=== PATIENT | female | born 1995 | race Caucasian/White ===

== ENCOUNTER 2018-10-13 09:42 | Emergency (ER) | payer OTHER ==
[2018-10-13 10:30] LABS: Urine Blood TRACE (NEG); Urine Glucose 2+ (NEG); Urine Protein 2+ (NEG); Urine Specific Gravity 1.025 (1.005-1.030)
[2018-10-13 10:31] LABS: Hematocrit 49.6 % (36.0-45.0); RBC Red Blood Cell Count 5.62 M/uL (3.86-4.86)
[2018-10-13 10:32] LABS: Absolute Lymphocytes (CBC) 2.7 K/uL (0.7-4.9); Absolute Monocytes 0.6 K/uL (0.1-1.3); Absolute Neutrophil 7.8 K/uL (1.8-8.0); Basophils % 0.9 % (0-1.3); Eosinophils % 4.9 % (0-4.4); Lymphocytes % 22.6 % (15.3-44.8); MPV 7.9 fL (7.6-11.3); Monocytes % 5.3 % (3.3-12.3)
[2018-10-13] MEDS ORDERED: NA CHLORIDE 0.9% 1,000 ML ONE (10:36)
[2018-10-13] MEDS ORDERED: ONDANSETRON 4 MG/2 ML VIAL ONE (10:36)
[2018-10-13] MEDS ORDERED: KETOROLAC 30 MG/ML INJ ONE (10:36)
[2018-10-13 10:54] LABS: ALT/SGPT 46 U/L (12-78); AST/SGOT 15 U/L (15-37); Albumin 4.2 g/dL (3.4-5.0); Alkaline Phosphatase 68 U/L (45-117); BUN Blood Urea Nitrogen 12 mg/dL (7-18); Bicarbonate 25 mmol/L (21-32); Bilirubin Direct 0.1 mg/dL (0-0.2); Bilirubin Total 0.5 mg/dL (0.2-1.0); Glucose Level 119 mg/dL (74-106); Lipase 111 U/L (73-393); Potassium 3.6 mmol/L (3.5-5.1); Sodium Level 138 mmol/L (136-145)
--- NOTE | 2018-10-13 11:06 | EDPHYS ---
Physician Documentation [facility] Name: Yari Salazar Age: 23 yrs Sex: Female : 1995 Arrival Date: 10/13/2018 Time: 09:46 Bed 19 Private MD: Lei Romeo ED Physician Jason Gregorio HPI: 10/13 10:17 This 23 yrs old Female presents to ER via Ambulatory with complaints of kb Abdominal Pain, Vomiting/Diarrhea. 10:17 The patient presents with abdominal pain in the upper abdomen. kb 10:18 Onset: The symptoms/episode began/occurred 3 day(s) ago. The symptoms do not radiate. kb Associated signs and symptoms: Pertinent positives: nausea, vomiting, and diarrhea, Pertinent negatives: dysuria, fever. The symptoms are described as constant. Modifying factors: The symptoms are alleviated by nothing, the symptoms are aggravated by nothing. Severity of pain: At its worst the pain was moderate in the emergency department the pain is unchanged. The patient has not experienced similar symptoms in the past. The patient has not recently seen a physician. 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 - Social history:: Smoking status: Patient/guardian denies using tobacco. - Ebola Screening: : Patient negative for fever greater than or equal to 101.5 degrees Fahrenheit, and additional compatible Ebola Virus Disease symptoms Patient denies exposure to infectious person Patient denies travel to an Ebola-affected area in the 21 days before illness onset No symptoms or risks identified at this time. ROS: 10:18 Constitutional: Negative for fever, chills, and weight loss, ENT: Negative for injury, kb pain, and discharge, Neck: Negative for injury, pain, and swelling, Cardiovascular: Negative for chest pain, palpitations, and edema, Respiratory: Negative for shortness of breath, cough, wheezing, and pleuritic chest pain, Back: Negative for injury and pain, : Negative for injury, bleeding, discharge, and swelling, MS/Extremity: Negative for injury and deformity, Skin: Negative for injury, rash, and discoloration, Neuro: Negative for headache, weakness, numbness, tingling, and seizure. 10:18 Abdomen/GI: Positive for abdominal pain, nausea, vomiting, and diarrhea. Exam: 10:19 Constitutional: This is a well developed, well nourished patient who is awake, alert, kb and in no acute distress. Head/Face: Normocephalic, atraumatic. ENT: Nares patent. No nasal discharge, no septal abnormalities noted. Tympanic membranes are normal and external auditory canals are clear. Oropharynx with no redness, swelling, or masses, exudates, or evidence of obstruction, uvula midline. Mucous membranes moist. Neck: Trachea midline, no thyromegaly or masses palpated, and no cervical lymphadenopathy. Supple, full range of motion without nuchal rigidity, or vertebral point tenderness. No Meningismus. Chest/axilla: Normal chest wall appearance and motion. Nontender with no deformity. No lesions are appreciated. Cardiovascular: Regular rate and rhythm with a normal S1 and S2. No gallops, murmurs, or rubs. Normal PMI, no JVD. No pulse deficits. Respiratory: Lungs have equal breath sounds bilaterally, clear to auscultation and percussion. No rales, rhonchi or wheezes noted. No increased work of breathing, no retractions or nasal flaring. Back: No spinal tenderness. No costovertebral tenderness. Full range of motion. Skin: Warm, dry with normal turgor. Normal color with no rashes, no lesions, and no evidence of cellulitis. MS/ Extremity: Pulses equal, no cyanosis. Neurovascular intact. Full, normal range of motion. Neuro: Awake and alert, GCS 15, oriented to person, place, time, and situation. Cranial nerves II-XII grossly intact. Motor strength 5/5 in all extremities. Sensory grossly intact. Cerebellar exam normal. Normal gait. 10:19 Abdomen/GI: Inspection: obese Bowel sounds: normal, in all quadrants, Palpation: soft, in all quadrants, mild abdominal tenderness, in the right upper quadrant and left upper quadrant. Vital Signs: 10:03 BP 152 / 85; Pulse 100; Resp 16 S; Temp 97.2(TE); Pulse Ox 97% on R/A; Weight 117.93 iw kg; Height 5 ft. 7 in. (170.18 cm); Pain 6/10; 10:34 BP 135 / 109; Pulse 85; Resp 16; Pulse Ox 98% ; bp 11:18 BP 145 / 88; Pulse 78; Resp 16; Temp 97.5; Pulse Ox 99% ; bp 10:03 Body Mass Index 40.72 (117.93 kg, 170.18 cm) iw MDM: 10:00 Patient medically screened. kb 10:19 Data reviewed: vital signs, nurses notes. Data interpreted: Pulse oximetry: on room air kb is 97 %. Interpretation: normal. 11:01 Counseling: I had a detailed discussion with the patient and/or guardian regarding: the kb historical points, exam findings, and any diagnostic results supporting the discharge/admit diagnosis, lab results, the need for outpatient follow up, a family practitioner, to return to the emergency department if symptoms worsen or persist or if there are any questions or concerns that arise at home. 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 kb 10/13 10:08 Order name: Basic Metabolic Panel; Complete Time: 11:01 kb 10/13 10:08 Order name: CBC with Diff; Complete Time: 10:46 kb 10/13 10:08 Order name: Hepatic Function; Complete Time: 11:01 kb 10/13 10:08 Order name: Lipase; Complete Time: 11:01 kb 10/13 10:10 Order name: Urine Dipstick--Ancillary (enter results); Complete Time: 10:30 eb 10/13 10:10 Order name: Urine --Ancillary (enter results); Complete Time: 10:30 eb 10/13 10:08 Order name: IV Saline Lock; Complete Time: 10:27 kb 10/13 10:08 Order name: Labs collected and sent; Complete Time: 10:27 kb 10/13 11:04 Order name: PO challenge; Complete Time: 11:16 kb Administered Medications: 10:15 Drug: NS 0.9% 1000 ml Route: IV; Rate: 1000 ml; Site: right forearm; bp 11:16 Follow up: IV Status: Completed infusion; IV Intake: 1000ml bp 10:20 Drug: Zofran 4 mg Route: IVP; Site: right forearm; bp 10:59 Follow up: Response: Nausea is decreased bp 10:20 Drug: TORadol 30 mg Route: IVP; Site: right forearm; bp 10:59 Follow up: Response: Pain is decreased bp 11:04 CANCELLED (Physician Discretion): NS 0.9% 1000 ml IV at 1000 ml once kb Disposition: 18:25 Co-signature as Attending Physician, Jason Gregorio MD. Disposition: 10/13/18 11:04 Discharged to Home. Impression: Nausea with vomiting, unspecified, Upper abdominal pain, unspecified, Diarrhea, unspecified. - Condition is Stable. - Discharge Instructions: Food Choices to Help Relieve Diarrhea, Adult, Viral Gastroenteritis, Adult, [id number]. - Prescriptions for Bentyl 20 mg Oral Tablet - take 1 tablet by ORAL route every 6 hours As needed; 20 tablet. Zofran 4 mg Oral Tablet - take 1 tablet by ORAL route every 6 hours As needed; 20 tablet. - Medication Reconciliation Form, Thank You Letter, Antibiotic Education, Prescription Opioid Use form. - Follow up: Emergency Department; When: As needed; Reason: Worsening of condition. Follow up: Private Physician; When: 2 - 3 days; Reason: Recheck today's complaints, Continuance of care, Re-evaluation by your physician. Signatures: Dispatcher [employer] EDMS Rosemary Bautista, HOSTED SERVICES ANALYST-C HOSTED SERVICES ANALYST-Ckb Sheree Negro, Jason Maher RN, MD MD Lei Colon RN RN bp Corrections: (The following items were deleted from the chart) 11:04 11:01 NS 0.9% 1000 ml IV at 1000 ml once ordered. kb kb 11:19 11:04 10/13/2018 11:04 Discharged to Home. Impression: Nausea with vomiting, bp unspecified; Upper abdominal pain, unspecified; Diarrhea, unspecified. Condition is Stable. Discharge Instructions: Food Choices to Help Relieve Diarrhea, Adult, Viral Gastroenteritis, Adult, [id number]. Prescriptions for Bentyl 20 mg Oral Tablet - take 1 tablet by ORAL route every 6 hours As needed; 20 tablet, Zofran 4 mg Oral Tablet - take 1 tablet by ORAL route every 6 hours As needed; 20 tablet. and Forms are Medication Reconciliation Form, Thank You Letter, Antibiotic Education, Prescription Opioid Use. Follow up: Emergency Department; When: As needed; Reason: Worsening of condition. Follow up: Private Physician; When: 2 - 3 days; Reason: Recheck today's complaints, Continuance of care, Re-evaluation by your physician. kb
--- NOTE | 2018-10-13 11:06 | ER ---
Nurse's Notes [facility] Name: Yari Salazar Age: 23 yrs Sex: Female : 1995 Arrival Date: 10/13/2018 Time: 09:46 Bed 19 Private MD: Lei Romeo Diagnosis: Nausea with vomiting, unspecified;Upper abdominal pain, unspecified;Diarrhea, unspecified Presentation: 10/13 10:00 Presenting complaint: Patient states: nausea and abd pain started on Wednesday, diarrhea iw on Wednesday, vomiting on and Wed, pain described as cramping and constant, no vomiting today. Transition of care: patient was not received from another setting of care. Onset of symptoms was October 10, 2018. Risk Assessment: Do you want to hurt yourself or someone else? Patient reports no desire to harm self or others. Initial Sepsis Screen: Does the patient meet any 2 criteria? No. Patient's initial sepsis screen is negative. Does the patient have a suspected source of infection? No. Patient's initial sepsis screen is negative. Care prior to arrival: None. 10:00 Method Of Arrival: Ambulatory iw 10:00 Acuity: VIRAJ 3 iw Triage Assessment: 10:05 General: Appears in no apparent distress. comfortable, obese, Behavior is calm, bp cooperative, appropriate for age. Pain: Complains of pain in left upper quadrant and right upper quadrant. EENT: No deficits noted. Neuro: Level of Consciousness is awake, alert, obeys commands, Oriented to person, place, time, situation, Appropriate for age. Cardiovascular: No deficits noted. Respiratory: Airway is patent Respiratory effort is even, unlabored, Respiratory pattern is regular, symmetrical. GI: Reports upper abdominal pain, diarrhea, nausea, vomiting. : No signs and/or symptoms were reported regarding the genitourinary system. Derm: No deficits noted. Musculoskeletal: Circulation, motion, and sensation intact. Range of motion: intact in all extremities. 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 - Social history:: Smoking status: Patient/guardian denies using tobacco. - Ebola Screening: : Patient negative for fever greater than or equal to 101.5 degrees Fahrenheit, and additional compatible Ebola Virus Disease symptoms Patient denies exposure to infectious person Patient denies travel to an Ebola-affected area in the 21 days before illness onset No symptoms or risks identified at this time. Screenin:28 Abuse screen: Denies threats or abuse. Denies injuries from another. Nutritional bp screening: No deficits noted. Tuberculosis screening: No symptoms or risk factors identified. Fall Risk None identified. Assessment: 10:05 General: SEE TRIAGE NOTE. bp 10:05 GI: Bowel sounds present X 4 quads. Abd is soft X 4 quads. bp 11:10 Reassessment: PO CHALLENGE SUCCESSFUL. bp 11:17 Reassessment: PT D/C HOME AMBULATORY, DX WITH UNSPECIFIED NAUSEA AND VOMITING. bp Vital Signs: 10:03 BP 152 / 85; Pulse 100; Resp 16 S; Temp 97.2(TE); Pulse Ox 97% on R/A; Weight 117.93 iw kg; Height 5 ft. 7 in. (170.18 cm); Pain 6/10; 10:34 BP 135 / 109; Pulse 85; Resp 16; Pulse Ox 98% ; bp 11:18 BP 145 / 88; Pulse 78; Resp 16; Temp 97.5; Pulse Ox 99% ; bp 10:03 Body Mass Index 40.72 (117.93 kg, 170.18 cm) iw ED Course: 09:46 Patient arrived in ED. mr 09:47 Lei Romeo MD is Private Physician. mr 09:51 Lei Colon, RN is Primary Nurse. bp 10:00 Rosemary Bautista [facility]-C [facility]. kb 10:00 Jason Gregorio MD is Attending Physician. kb 10:01 Triage completed. iw 10:03 Arm band placed on. iw 10:20 Inserted saline lock: 20 gauge in right forearm, using aseptic technique. Blood bp collected. 10:28 Patient has correct armband on for positive identification. Bed in low position. Call bp light in reach. Side rails up X2. 11:18 No provider procedures requiring assistance completed. IV discontinued, intact, bp bleeding controlled, No redness/swelling at site. Pressure dressing applied. Administered Medications: 10:15 Drug: NS 0.9% 1000 ml Route: IV; Rate: 1000 ml; Site: right forearm; bp 11:16 Follow up: IV Status: Completed infusion; IV Intake: 1000ml bp 10:20 Drug: Zofran 4 mg Route: IVP; Site: right forearm; bp 10:59 Follow up: Response: Nausea is decreased bp 10:20 Drug: TORadol 30 mg Route: IVP; Site: right forearm; bp 10:59 Follow up: Response: Pain is decreased bp 11:04 CANCELLED (Physician Discretion): NS 0.9% 1000 ml IV at 1000 ml once kb Intake: 11:16 IV: 1000ml; Total: 1000ml. bp Outcome: 11:04 Discharge ordered by . kb 11:18 Discharged to home ambulatory. bp 11:18 Condition: stable 11:18 Discharge instructions given to patient, Instructed on discharge instructions, follow up and referral plans. medication usage, Demonstrated understanding of instructions, follow-up care, medications, Prescriptions given X 2. 11:19 Patient left the ED. bp Signatures: Rosemary Bautista, LEEANNA PORTABLE TRACK LINE MARKER-Olinda Mathews mr Sheree Negro, RN RN iw Lei Colon, SHERRIE RN bp
== END 2018-10-13 11:19 | disposition home or self-care (01) ==
LOC: ER 09:42
DX: R11.2 Nausea with vomiting, unspecified (principal); R19.7 Diarrhea, unspecified; E11.9 Type 2 diabetes mellitus without complications
CPT/HCPCS: 36415; 80048; 80076; 81003; 81025; 83690; 85025; 96361; 96374; 96375; 99284; J2405; J7030